=== PATIENT | female | born 1980 | race African-American/Black ===

== ENCOUNTER 2020-03-21 11:38 | Emergency (ER) | payer OTHER ==
[2020-03-21 11:45] VITALS: BMI 22.1
--- NOTE | 2020-03-21 11:50 | PDOC ---
Rapid Medical Evaluation Chief Complaint: Vaginal Bleeding Time Seen by Provider: 03/21/20 11:46 Medical Evaluation: Allergies Allergy/AdvReac Type Severity Reaction Status Date / Time No Known Allergies Allergy Verified 03/21/20 11:42 Vital Signs Temp Pulse Resp BP Pulse Ox 98.7 F 102 H 20 118/76 100 03/21/20 11:42 03/21/20 11:42 03/21/20 11:42 03/21/20 11:42 03/21/20 11:42 03/21/20 11:50 I have performed a brief in-person evaluation of this patient. The patient presents with a chief complaint of:1st trimester bleeding Pertinent physical exam findings:stable, NAD I have ordered the following:labs/ua The patient will proceed to the ED for further evaluation. Discharge Disposition - Diagnosis First trimester bleeding - Referrals - Patient Instructions - Post Discharge Activity
--- NOTE | 2020-03-21 12:00 | PDOC ---
History of Present Illness - General History Source: Patient Exam Limitations: No Limitations - History of Present Illness Initial Comments: 40 year old female pmhx of sickle cell trait and fibroids 16 weeks presenting to the ED complaining of painless vaginal bleeding x 1 day. Pt states she was seen and evaluated by her EPIDEMIOLOGY INTERN this morning who sent her to the ED for an US and beta HCG. Pt descibes blood loss as minimal and only noticed the blood when she wiped after urinating. Pt states that her last was uncomplicated, and went to term, pt never had a miscarriage. pt states that she has noticed white vaginal discharge recently without any odor, however denies pain with intercourse, dysuria, hematuria and is only sexually active with one partner. Pt otherwise denies: fevers, chills, syncope, lightheadedness, dizzine ss, headaches, changes in vision, changes in hearing, neck pain, chest pain, shortness of breath, palpitations, back pain, abdominal pain, nausea, vomiting, diarrhea, constipation. 03/21/20 11:55 03/21/20 18:53 <Dami Choudhary - Last Filed: 03/21/20 18:53> <Dana King - Last Filed: 03/24/20 13:42> - General Chief Complaint: Vaginal Bleeding Stated Complaint: 16 W PREG/VAG BLEEDING Time Seen by Provider: 03/21/20 11:46 Past History - Medical History COPD: No Other medical history: SICKEL CELL TRAIN - Reproductive History (#): 1 - Immunization History Immunization Up to Date: Yes - Psycho-Social/Smoking History Smoking History: Never smoked - Substance Abuse Hx (Audit-C & DAST Scrn) How often the patient has a drink containing alcohol: Never Score: In Men: 4 or > Positive; In Women: 3 or > Positive: 0 Screen Result (Pos requires Nsg. Audit-10AR): Negative In the last yr the pt used illegal drug/Rx for NonMed reason: No Score: Yes response is considered Positive: 0 Screen Result (Positive result requires Nsg. DAST-10): Negative <Dami Choudhary - Last Filed: 03/21/20 18:53> <Dana King - Last Filed: 03/24/20 13:42> - Medical History Allergies/Adverse Reactions: Allergies Allergy/AdvReac Type Severity Reaction Status Date / Time No Known Allergies Allergy Verified 03/21/20 11:42 Home Medications: Ambulatory Orders Vit No.130/Iron/Folic [ Vitamins] 1 each PO DAILY 02/21/16 Review of Systems - Review of Systems Constitutional: No: Chills, Fever, Weakness Respiratory: No: Cough, Orthopnea, Shortness of Breath Cardiac (ROS): No: Chest Pain, Palpitations ABD/GI: No: Abdominal Distended, Diarrhea, Nausea, Vomiting : Yes: Symptoms Reported (vaginal bleeding ), Discharge. No: Burning, Dysuria, Hematuria <Dami Choudhary - Last Filed: 03/21/20 18:53> *Physical Exam - Vital Signs Last Vital Signs Temp Pulse Resp BP Pulse Ox 98.7 F 102 H 20 118/76 100 03/21/20 11:42 03/21/20 11:42 03/21/20 11:42 03/21/20 11:42 03/21/20 11:42 - Physical Exam 03/21/20 12:00 Gen: AAOx 3, no acute distress, comfortable, no signs of respiratory distress HENT: atraumatic, normocephalic with no laceration or contusion. Nasal mucosa without erythema. Oropharynx without erythema or exudates. Mucous membranes moist. EYES: PERRL, EOM intact, conjunctiva pink NECK: supple; trachea midline; no JVD, no lymphadenopathy, or thyromegaly CV: RRR no murmurs, gallops, or rubs. CHEST: CTA b/l no wheezing, rales or rhonchi ABD: +BS/ND. no TTP; soft, no rebound, no guarding PELVIC: No external lesions, vaginal vault: + white discharge, no blood, - midline tenderness elicited with manual exam, no CMT or adnexal tenderness; os closed EXTREMITY: no cyanosis or erythema. 2+ dorsalis pedis, posterior tibial, and radial pulse. No pedal edema; no calf swelling or tenderness SKIN: no rash, warm and dry, no diaphoresis HEME: no purpura or ecchymosis NEURO: normal speech, CN II-XII intact, sensation intact, normal gait, no cerebellar deficits MS: 5/5 strength in all extremities, FROM intact in all extremities. 03/21/20 12:23 <KenrickDami - Last Filed: 03/21/20 18:53> - Vital Signs Last Vital Signs Temp Pulse Resp BP Pulse Ox 98.7 F 102 H 20 118/76 100 03/21/20 11:42 03/21/20 11:42 03/21/20 11:42 03/21/20 11:42 03/21/20 11:42 <Dana King - Last Filed: 03/24/20 13:42> ED Treatment Course - LABORATORY CBC & Chemistry Diagram: 03/21/20 13:00 - RADIOLOGY Radiology Studies Ordered: Category Date Time Status TRANSVAGINAL US PREG [US] Stat Ultrasound 03/21/20 11:54 Ordered <KenrickDami - Last Filed: 03/21/20 18:53> - LABORATORY CBC & Chemistry Diagram: 03/21/20 13:00 <Dana King - Last Filed: 03/24/20 13:42> Medical Decision Making - Medical Decision Making 40-year-old female past medical history fibroids sickle cell trait G2, P1 16 w eeks presenting with vaginal bleeding. Vital signs stable except mild tachycardia to 102 OS closed on exam. Plan: We will obtain beta-hCG type and screen CBC gonorrhea chlamydia testing UA UC and transvaginal ultrasound will reassess based on results. Ultrasound shows single live intrauterine gestation of 17 weeks 1 day with heart rate of 142 bpm Labs WNL UA negative Beta consistent with gestational age. Laboratory Tests 03/21/20 13:00 Beta HCG, Quant 39422.0 Pt is safe and stable for discharge tachycardia resolved. Pt to follow up with CARPENTER SUPERVISOR within 2 days and importance of follow up explained to pt. Pt informed we will call if GC results abnormal and need return to ED if so. Pt appears well and was reassured. Supportive care instructions explained and given to pt. Reasons to return emerg ently to ER explained and given. Importance of follow up with PMD and other specialists as indicated stressed to pt. Pt verbalized understanding of instructions. Pt to follow up with PMD in 2 days. 03/21/20 18:53 <KenrickDami - Last Filed: 03/21/20 18:53> - Medical Decision Making The patient was seen and evaluated in conjunction with midlevel provider under my direct supervision, ancillary studies were reviewed. I agree with the plan as outlined with RAHAT Choudhary. HPI, workup/dispo as outlined. VS reviewed, wnl. basic labs And lytes, txs ultrasound pelvic to eval for IUP/ well being. showing Live IUP 17 wks. FHR identified.f hcg 15,000 rh positive, no rhogam indicated. anticipate discharge, pcp followup, return precautions ICER HAND/OB followup, bleeding precautions. 03/21/20 12:32 03/24/20 13:41 03/24/20 13:42 <Dana King - Last Filed: 03/24/20 13:42> Discharge - Discharge Information Problems reviewed: Yes - Admission No <Dami Choudhary - Last Filed: 03/21/20 18:53> - Discharge Information Problems reviewed: Yes <Dana King - Last Filed: 03/24/20 13:42> - Discharge Information Clinical Impression/Diagnosis: First trimester bleeding, Second trimester bleeding Condition: Stable Disposition: HOME - Patient Discharge Instructions Patient Printed Discharge Instructions: DI for Vaginal Bleeding During Additional Instructions: You must follow up with your OBGYN - Post Discharge Activity Work/Back to School Note: Back to Work
[2020-03-21 13:51] LABS: BASO % 0.2 % (0-2.0); EOS % 0.4 % (0-4.5); HEMATOCRIT 34.4 % (32.4-45.2); HEMOGLOBIN 11.2 GM/dL (10.7-15.3); LYMPH % 17.6 % (8-40); MCH 25.7 pg (25.7-33.7); MCHC 32.7 g/dl (32.0-36.0); MEAN CELL VOLUME 78.8 fl (80-96); MEAN PLT VOLUME 9.8 fl (7.5-11.1); MONO % 5.2 % (3.8-10.2); NEUT % 76.6 % (42.8-82.8); PLATELET COUNT 233 K/MM3 (134-434); RBC 4.37 M/mm3 (3.60-5.2); RDW 14.5 % (11.6-15.6); WHITE BLOOD COUNT 8.2 K/mm3 (4.0-10.0)
[2020-03-21 14:03] LABS: PH,URINE 7.5 (5.0-8.0); URINE APPEARANCE CLEAR; URINE BILIRUBIN NEGATIVE (NEGATIVE); URINE COLOR YELLOW; URINE GLUCOSE (UA) NEGATIVE (NEGATIVE); URINE KETONE NEGATIVE (NEGATIVE); URINE LEUK ESTERASE NEGATIVE (NEGATIVE); URINE NITRITE NEGATIVE (NEGATIVE); URINE PROTEIN NEGATIVE (NEGATIVE); URINE UROBILINOGEN 0.2 mg/dL (0.2-1.0)
[2020-03-21 14:41] VITALS: BP 106/72; PULSE 75; TEMP 99.1
== END 2020-03-21 14:55 | disposition home or self-care (01) ==
LOC: JER 11:38
DX: O20.9 Hemorrhage in early pregnancy, unspecified (principal); Z3A.16 16 weeks gestation of pregnancy
CPT/HCPCS: 36415; 76815-TC; 81003; 84702; 85025; 86850; 86900; 86901; 87086; 87491; 87591; 99284-25

== ENCOUNTER 2020-09-10 21:20 | Inpatient (IN) | payer OTHER ==
[2020-09-10] MEDS ORDERED: OXYTOCIN 20 UNITS in 0.9% NS 20 UNIT/1,000 ML INFUS.BAG IV ONE (23:27)
[2020-09-10] MEDS ORDERED: LIDOCAINE HCL 1% PRESERVATIVE FREE - 30ML VIAL ONE (23:33)
[2020-09-10] MEDS ORDERED: OXYTOCIN 20 UNITS in 0.9% NS 40 UNIT/2,000 ML INFUS.BAG IV ONE (23:36)
[2020-09-11] MEDS ORDERED: ELECTROLYTE-148 SOLN 1,000 ML IV SCH (00:15)
[2020-09-11] MEDS ORDERED: BENZOCAINE 20% 57 GM BOTTLE TP PRN (00:37)
[2020-09-11] MEDS ORDERED: WITCH HAZEL 50% (TUCKS) 40 PAD/JAR PAD TP PRN (00:37)
[2020-09-11] MEDS ORDERED: BENZOCAINE 28 GM HEMORRHOIDAL OINTMENT TP PRN (00:37)
[2020-09-11] MEDS ORDERED: OXYTOCIN 20 UNITS in 0.9% NS 20 UNIT/1,000 ML INFUS.BAG IV SCH (00:45)
[2020-09-11 02:24] LABS: BASO % 0.2 % (0-2.0); EOS % 0.1 % (0-4.5); HEMATOCRIT 41.3 % (32.4-45.2); HEMOGLOBIN 13.5 GM/dL (10.7-15.3); LYMPH % 8.7 % (8-40); MCH 26.6 pg (25.7-33.7); MCHC 32.7 g/dl (32.0-36.0); MEAN CELL VOLUME 81.2 fl (80-96); MEAN PLT VOLUME 9.8 fl (7.5-11.1); MONO % 2.8 % (3.8-10.2); NEUT % 88.2 % (42.8-82.8); PLATELET COUNT 245 K/MM3 (134-434); RBC 5.08 M/mm3 (3.60-5.2); RDW 13.8 % (11.6-15.6); WHITE BLOOD COUNT 11.2 K/mm3 (4.0-10.0)
[2020-09-11 02:37] LABS: INR 0.89 (0.83-1.09); PROTHROMBIN TIME (PATIENT) 10.8 SEC (9.7-13.0)
[2020-09-11 02:39] LABS: ACTIVATED PTT 26.8 SECONDS (25.2-36.5)
[2020-09-11 02:44] LABS: POTASSIUM 4.1 mmol/L (3.5-5.1)
[2020-09-11 02:45] LABS: CALCIUM 9.1 mg/dL (8.5-10.1)
[2020-09-11 02:46] LABS: BLOOD UREA NITROGEN 11.6 mg/dL (7-18)
[2020-09-11 02:49] LABS: CREATININE 0.7 mg/dL (0.55-1.3)
[2020-09-11] MEDS: IBUPROFEN 600 MG TABLET (FP) PO PRN ×3 (03:39→20:51)
[2020-09-11] MEDS: ACETAMINOPHEN 325 MG TABLET (FP) PO PRN ×3 (03:40→20:51)
[2020-09-11 09:46] VITALS: BMI 28.1
[2020-09-11] MEDS ORDERED: FLU VACCINE (FLULAVAL) PF 60 MCG/0.5 ML SYRINGE 2020-2021 IM ONE (10:00)
[2020-09-11] MEDS: PRENATAL VITAMINS W/ FOLIC ACID TABLET (FP) PO SCH (10:11)
[2020-09-11] MEDS: DOCUSATE SODIUM 100 MG CAPSULE (FP) PO SCH (10:11)
[2020-09-11 15:15] LABS: BASO % 0.3 % (0-2.0); EOS % 0.3 % (0-4.5); HEMATOCRIT 34.3 % (32.4-45.2); HEMOGLOBIN 11.3 GM/dL (10.7-15.3); LYMPH % 9.8 % (8-40); MCH 26.8 pg (25.7-33.7); MCHC 32.9 g/dl (32.0-36.0); MEAN CELL VOLUME 81.4 fl (80-96); MEAN PLT VOLUME 9.7 fl (7.5-11.1); MONO % 6.5 % (3.8-10.2); NEUT % 83.1 % (42.8-82.8); PLATELET COUNT 211 K/MM3 (134-434); RBC 4.21 M/mm3 (3.60-5.2); RDW 13.8 % (11.6-15.6); WHITE BLOOD COUNT 15.2 K/mm3 (4.0-10.0)
[2020-09-12 09:35] VITALS: BP 129/84; PULSE 76; TEMP 97.8
[2020-09-12] MEDS: IBUPROFEN 600 MG TABLET (FP) PO PRN (10:03)
[2020-09-12] MEDS: PRENATAL VITAMINS W/ FOLIC ACID TABLET (FP) PO SCH (10:03)
[2020-09-12] MEDS: DOCUSATE SODIUM 100 MG CAPSULE (FP) PO SCH (10:03)
[2020-09-12] MEDS: ACETAMINOPHEN 325 MG TABLET (FP) PO PRN (10:04)
[2020-09-12] MEDS ORDERED: SENNOSIDES/DOCUSATE COMBO (SENNA PLUS) TABLET (UD) PO PRN (22:00)
== END 2020-09-12 15:10 | disposition home or self-care (01) | DRG 560 ==
LOC: JDEL 21:20 → JLDR 22:55 → J3W 09-11 02:50
PROVIDERS: ADMIT Obstetrics & Gynecology; ATTEND Obstetrics & Gynecology
PROC: 10E0XZZ Delivery of Products of Conception, External Approach (ICD-10-PCS; principal; 2020-09-10)
PROC: 0W8NXZZ Division of Female Perineum, External Approach (ICD-10-PCS; 2020-09-10)
DX: O80 Encounter for full-term uncomplicated delivery (principal); Z3A.40 40 weeks gestation of pregnancy; Z37.0 Single live birth
CPT/HCPCS: 36415; 59025; 59409; 80048; 85025; 85610; 85730; 86780; 86850; 86900; 86901; 87340; C9803; G0008; Q2036; U0003

== ENCOUNTER 2021-06-20 10:00 | Emergency (ER) | payer OTHER ==
[2021-06-20 10:10] VITALS: BP 113/85; PULSE 95; TEMP 98.9; BMI 22.7
== END 2021-06-20 11:41 | disposition home or self-care (01) ==
LOC: JER 10:00
DX: U07.1 COVID-19 (principal)
CPT/HCPCS: 99283-25